=== PATIENT | female | born 1985 | race Caucasian/White ===

== ENCOUNTER 2017-04-12 14:49 | Emergency (ER) | payer SELFPAY ==
[~2017-04-12] VITALS: Ht 154.9 cm; Wt 55.4 kg
[2017-04-12 14:51] VITALS: BP 122/71; PULSE 87; RESP 16; TEMP 98.6; O2SAT 97
[2017-04-12] MEDS ORDERED: OSEL75 PO (15:36)
--- NOTE | 2017-04-12 15:37 | PD ---
HPI Chief Complaint: Cold / Flu Symptoms Time Seen by Provider: 15:28 Travel History International Travel<30 days: No Contact w/Intl Traveler<30days: No Traveled to known affect area: No History of Present Illness HPI The patient's 31 and complains of cough of green phlegm along with sore throat and fever. Duration is about half a day. Multiple sick contacts at work. Onset gradual. Timing constant. Associated symptoms include rhinorrhea and sore throat PFSH Past Medical History Gastrointestinal Disorders: Yes (CROHNS) Influenza Vaccination: No ?: Not Past Surgical History Section: Yes Social History Alcohol Use: No Tobacco Use: Yes (02/26 PPD) Substance Use: No Allergies-Medications (Allergen,Severity, Reaction): Coded Allergies: amphetamine (Verified Allergy, Severe, RASH, 04/12/17) dextroamphetamine (Verified Allergy, Severe, RASH, 04/12/17) iodine (Verified Allergy, Severe, RASH, 04/12/17) methylphenidate (Verified Allergy, Severe, RASH, 04/12/17) Reported Meds & Prescriptions Reported Meds & Active Scripts Active No Active Prescriptions or Reported Medications Review of Systems General / Constitutional: Positive: Fever HENT: Positive: Sore Throat Physical Exam Narrative GENERAL: 31-year-old female pleasant well-nourished well-developed Vital Signs Date Time Temp Pulse Resp B/P (MAP) Pulse Ox O2 Delivery O2 Flow Rate FiO2 04/12/17 14:51 98.6 87 16 122/71 (88) 97 ENT: Posterior oropharynx widely patent. No exudate asymmetry or marked erythema. SKIN: Warm and dry. EYES: No scleral icterus. No injection or drainage. NECK: Supple, trachea midline. No JVD or lymphadenopathy. CARDIOVASCULAR: Regular rate and rhythm without murmurs, gallops, or rubs. RESPIRATORY: Breath sounds equal bilaterally. No accessory muscle use. GASTROINTESTINAL: Abdomen soft, non-tender, nondistended. MUSCULOSKELETAL: No cyanosis, or edema. BACK: Nontender without obvious deformity. No CVA tenderness. Data Data Last Documented VS Vital Signs Date Time Temp Pulse Resp B/P (MAP) Pulse Ox O2 Delivery O2 Flow Rate FiO2 04/12/17 14:51 98.6 87 16 122/71 (88) 97 MDM Medical Decision Making Medical Screen Exam Complete: Yes Emergency Medical Condition: Yes Medical Record Reviewed: Yes Differential Diagnosis influenza, pharyngitis, pneumonia Narrative Course Presentation is concerning for influenza this season. The patient is young and otherwise healthy and well-appearing. Tamiflu prescribed. Concern for being contagious at home discussed w patient. Return precautions discussed. Diagnosis Primary Impression: Influenza Referrals: Primary Care Physician 2 days Med/Other Pt SpecificInfo: Prescription(s) given Scripts Oseltamivir (Tamiflu) 75 Mg Cap 75 MG PO BID for Mgmt Viral Infection for 5 Days, #10 CAP 0 Refills Prov: Mao Crum MD 04/12/17 Disposition: 01 DISCHARGE HOME Condition: Stable Mao Crum MD Apr 12, 2017 15:37
== END 2017-04-12 15:50 | disposition home or self-care (01) ==
LOC: PHEFT 14:49
DX: J11.1 Influenza due to unidentified influenza virus with other respiratory manifestations (principal); F17.200 Nicotine dependence, unspecified, uncomplicated
CPT/HCPCS: 99283

== ENCOUNTER 2017-07-14 11:50 | Emergency (ER) | payer SELFPAY ==
[~2017-07-14] VITALS: Ht 154.9 cm; Wt 60.0 kg
[~2017-07-14 11:50] MED LIST: OSEL75 PO
[2017-07-14 11:55] VITALS: BP 121/66; PULSE 88; RESP 16; TEMP 97.9; O2SAT 96
--- NOTE | 2017-07-14 14:01 | RADRPT ---
EXAM DATE/TIME: 07/14/2017 13:48 [facility] COMPARISON: No previous studies available for comparison. INDICATIONS : Left foot laceration from broken glass MEDICAL HISTORY : None. SURGICAL HISTORY : None. ENCOUNTER: Initial ACUITY: 1 day PAIN SCORE: 9/10 LOCATION: Left foot FINDINGS: Three view examination of the left foot demonstrates no soft tissue swelling, dislocation, or fractur e. The tarsal bones appear intact. The interphalangeal and metatarsophalangeal joints are intact. The calcaneus is intact. Bony mineralization is normal. No radiopaque foreign bodies seen. CONCLUSION: 1. No radiopaque foreign bodies seen. 2. The osseous structures are grossly intact. Evelio Hall MD on July 14, 2017 at 13:58 Board Certified Radiologist. This report was verified electronically.
--- NOTE | 2017-07-14 14:36 | PD ---
HPI Chief Complaint: Laceration/Skin Injury Time Seen by Provider: 12:53 Travel History International Travel<30 days: No Contact w/Intl Traveler<30days: No Traveled to known affect area: No History of Present Illness HPI This is a 31-year-old female with a laceration to the left foot caused by stepping on a piece of broken glass. She does not believe she has a retained foreign body. She has pain at the site of the laceration. Injury occurred 30 minutes prior to arrival. Symptom severity is moderate. Tetanus immunization is up-to-date. [facility] Past Medical History Medical History: Denies Significant Hx Gastrointestinal Disorders: Yes (CROHNS) ?: Not LMP: 2 WEEKS Past Surgical History Section: Yes Social History Alcohol Use: No Tobacco Use: Yes (1/2 PPD) Substance Use: No Allergies-Medications (Allergen,Severity, Reaction): Coded Allergies: amphetamine (Verified Allergy, Severe, RASH, 04/12/17) dextroamphetamine (Verified Allergy, Severe, RASH, 04/12/17) iodine (Verified Allergy, Severe, RASH, 04/12/17) methylphenidate (Verified Allergy, Severe, RASH, 04/12/17) Reported Meds & Prescriptions Reported Meds & Active Scripts Active Tamiflu (Oseltamivir Phosphate) 75 Mg Cap 75 Mg PO BID 5 Days Review of Systems Except as stated in HPI: all other systems reviewed are Neg General / Constitutional: No: Fever Physical Exam Narrative GENERAL: Alert and well-appearing 31-year-old female SKIN: Warm and dry. HEAD: Normocephalic. EYES: No injection or drainage. NECK: Supple, trachea midline. CARDIOVASCULAR: Regular rate and rhythm RESPIRATORY: Breath sounds equal bilaterally. No accessory muscle use. GASTROINTESTINAL: Abdomen soft, non-tender, nondistended. MUSCULOSKELETAL: No cyanosis, or edema. Left foot: 3 cm flap laceration to the plantar aspect of the foot. No foreign bodies visualized. She has normal sensation distally. Palpable DP pulse. Brisk cap refill. Can freely wiggle the toes. BACK: Nontender without obvious deformity. No CVA tenderness. Data Data Last Documented VS Vital Signs Date Time Temp Pulse Resp B/P (MAP) Pulse Ox O2 Delivery O2 Flow Rate FiO2 07/14/17 11:55 97.9 88 16 121/66 (84) 96 Orders Orders Foot, Complete ([id number]) (5/20/18 ) [facility] Medical Decision Making Medical Screen Exam Complete: Yes Emergency Medical Condition: Yes Differential Diagnosis Foot laceration, retained foreign body, tendon injury Narrative Course 31-year-old female with a laceration to the left foot. X-ray was obtained to rule out foreign body. Procedures Procedure Narrative LACERATION LOCATION: Left foot plantar aspect LENGTH: 3 cm flap laceration NUMBER OF STITCHES/DIANA: 5 REPAIR: The area of the laceration was prepped with Betadine and sterilely draped. The laceration was infiltrated with 1% lidocaine. The wound was copiously irrigated and explored without evidence of foreign body, tendon injury or neurovascular injury. The wound was closed using 4-0 Ethilon. This was a single layer repair. A sterile dressing was applied. The patient was advised to keep the dressing clean and dry. Patient tolerated the procedure well. Diagnosis Primary Impression: Foot laceration Qualified Codes: S91.312A - Laceration without foreign body, left foot, initial encounter Referrals: Primary Care Physician Departure Forms: Tests/Procedures, Work Release Enter return to work date: July 18, 2017 Additional Instructions: Do not submerge the wound in water. Showering is okay. Keep covered with a clean dry dressing. Sutures need to be removed in 10 days Disposition: 01 DISCHARGE HOME Condition: Stable Deidre Johnson July 14, 2017 14:36
== END 2017-07-14 14:58 | disposition home or self-care (01) ==
LOC: PHEFT 11:50
DX: S91.312A Laceration without foreign body, left foot, initial encounter (principal); K50.90 Crohn's disease, unspecified, without complications; F17.200 Nicotine dependence, unspecified, uncomplicated; W25.XXXA Contact with sharp glass, initial encounter
CPT/HCPCS: 12002; 73630

== ENCOUNTER 2017-07-24 18:57 | Emergency (ER) | payer SELFPAY ==
[~2017-07-24] VITALS: Ht 154.9 cm; Wt 61.5 kg
[2017-07-24 18:59] VITALS: BP 121/68; PULSE 88; RESP 16; TEMP 98.5; O2SAT 98
[2017-07-24] MEDS ORDERED: BACT800T5 PO (19:32)
--- NOTE | 2017-07-24 19:51 | PD ---
HPI . Suture removal Chief Complaint: Wound/Suture/Staple Re-Check Time Seen by Provider: 19:27 Travel History International Travel<30 days: No Contact w/Intl Traveler<30days: No History of Present Illness HPI Patient presents for suture removal from her left foot. Sutures were placed on 07/14. Patient reports increasing pain over the last 2 days along with redness and some purulent drainage. No fever. PFSH Past Medical History Gastrointestinal Disorders: Yes (CROHNS) Past Surgical History Section: Yes Social History Alcohol Use: No Tobacco Use: Yes (/2 PPD) Substance Use: No Allergies-Medications (Allergen,Severity, Reaction): Coded Allergies: amphetamine (Verified Allergy, Severe, RASH, 04/12/17) dextroamphetamine (Verified Allergy, Severe, RASH, 04/12/17) iodine (Verified Allergy, Severe, RASH, 04/12/17) methylphenidate (Verified Allergy, Severe, RASH, 04/12/17) Reported Meds & Prescriptions Reported Meds & Active Scripts Active Bactrim DS (Sulfamethoxazole-Trimethoprim) 800-160 Mg Tab 1 Tab PO BID Tamiflu (Oseltamivir Phosphate) 75 Mg Cap 75 Mg PO BID 5 Days Review of Systems Except as stated in HPI: all other systems reviewed are Neg General / Constitutional: No: Fever, Chills Physical Exam Narrative GENERAL: Awake and alert and in no acute distress. SKIN: Warm and dry. Healing laceration on the plantar aspect of the left foot. There is some erythema at the wound edges. No obvious purulent drainage. HEAD: Normocephalic/atraumatic. EYES: Pupils are equal. Extraocular movements are intact. NECK: Normal range of motion. CARDIOVASCULAR: Regular rate and rhythm. RESPIRATORY: Nonlabored respirations. MUSCULOSKELETAL: Atraumatic. NEUROLOGICAL: Nonfocal. PSYCHIATRIC: Appropriate mood and affect. Data Data Last Documented VS Vital Signs Date Time Temp Pulse Resp B/P (MAP) Pulse Ox O2 Delivery O2 Flow Rate FiO2 07/24/17 18:59 98.5 88 16 121/68 (85) 98 Orders Orders Ed Discharge Order (07/24/17 19:33) MDM Medical Decision Making Medical Screen Exam Complete: Yes Emergency Medical Condition: Yes Differential Diagnosis My differential diagnosis of a wound check includes but is not limited to normal healing, delayed healing, localized wound infection, cellulitis, sepsis Narrative Course This patient presents for suture removal from the plantar aspect of the left foot. She has developed some redness, increased pain and drainage from the wound over the last 2 days. I do not appreciate any drainage on exam. However, she does have some redness of the wound edges. The sutures have been removed. She will be discharged home with instructions to soak her foot several times a day in warm Epsom salt and water. She has been given a prescription for Bactrim. Diagnosis Primary Impression: Visit for suture removal Additional Impression: Wound infection Patient Instructions: General Instructions Departure Forms: Tests/Procedures Additional Instructions: Soak foot several times a day in warm Epsom salts and water. Antibiotic ointment at least twice a day. Scripts Sulfamethoxazole-Trimethoprim (Bactrim DS) 800-160 Mg Tab 1 TAB PO BID for Infection, #20 TAB 0 Refills Prov: Cande Lantigua MD 07/24/17 Disposition: 01 DISCHARGE HOME Condition: Stable Cande Lantigua MD July 24, 2017 19:51
== END 2017-07-24 20:12 | disposition home or self-care (01) ==
LOC: PHED 18:57 → PHEFT 20:12
DX: T81.4XXA Infection following a procedure, initial encounter (principal); Z87.19 Personal history of other diseases of the digestive system; F17.200 Nicotine dependence, unspecified, uncomplicated; Z88.6 Allergy status to analgesic agent; Z88.8 Allergy status to other drugs, medicaments and biological substances; Z79.899 Other long term (current) drug therapy
CPT/HCPCS: 99281